=== PATIENT | male | born 1965 | race Asian ===

== ENCOUNTER 2020-08-04 13:57 | Outpatient (CLI) | payer MEDICAID | END 2020-08-04 13:58 | disposition home or self-care (01) | LOC: COV 13:57 | PROVIDERS: ATTEND Family Medicine | DX: M79.10 Myalgia, unspecified site (principal); R53.83 Other fatigue; R09.81 Nasal congestion; Z20.828 Contact with and (suspected) exposure to other viral communicable diseases ==